=== PATIENT | male | born 1960 | race Caucasian/White ===

== ENCOUNTER 2017-09-16 17:38 | Emergency (ER) | payer OTHER ==
[~2017-09-16] VITALS: Ht 165.1 cm; Wt 77.1 kg
[~2017-09-16 17:38] MED LIST: ALBU90OI INH; AMOCLA875 PO; ARIP10 PO; ASPI81CH PO; AZIT250 PO; Bactrim Ds Tab1 EACH PO; CEPH500 PO; CLON.5 PO; CLON1 PO; HYDACE5 PO; HYDCHL25 PO; IBUP400 PO; MECL12.5 PO; METO50ER PO; NAPR500 PO; RXHYDACE PO; SULTRIDS PO; TRAM50 PO
[2017-09-16 19:00] LABS: Calcium, Ionized (POC) 1.15 mmol/L (1.10-1.46); Chloride (POC) 101 mmol/L (98-108); Creatinine (POC) 1.4 mg/dL (0.8-1.3); Glucose (ISTAT POC) 90 mg/dL (70-99); Hemoglobin (POC) 12.9 g/dL (13.5-17.5); Potassium (POC) 3.3 mmol/L (3.5-5.5); Sodium (POC) 142 mmol/L (135-148); Total CO2 (POC) 31 mmol/L (21-32)
== END 2017-09-16 19:25 | disposition home or self-care (01) ==
LOC: ER 17:38
PROVIDERS: Emergency Medicine
DX: R40.0 Somnolence (principal); F15.10 Other stimulant abuse, uncomplicated; F17.210 Nicotine dependence, cigarettes, uncomplicated; F17.220 Nicotine dependence, chewing tobacco, uncomplicated; Z88.8 Allergy status to other drugs, medicaments and biological substances
CPT/HCPCS: 36415; 80047; 85014; 93005; 93010; 99285

== ENCOUNTER → 2018-06-13 | Outpatient (CLI) | payer MEDICARE, OTHER | LOC: LAB EV 16:00 → LAB SHORT 16:00 | DX: L02.511 Cutaneous abscess of right hand (principal) | CPT/HCPCS: 87070; 87075; 87077; 87147; 87186; 87205 ==

== ENCOUNTER 2024-02-23 11:02 | Emergency (ER) | payer OTHER ==
[~2024-02-23] VITALS: Ht 165.1 cm; Wt 86.2 kg
[2024-02-23 11:18] VITALS: BP 166/84
[2024-02-23] MEDS ORDERED: ACET500 PO (11:38)
[2024-02-23] MEDS ORDERED: IBUP600 PO (11:38)
[2024-02-23] MEDS ORDERED: Acetaminophen 500 MG Tab PO ONE (11:40)
[2024-02-23] MEDS ORDERED: Ketorolac Tromethamine 15mg Vial IM ONE (11:40)
== END 2024-02-23 12:15 | disposition home or self-care (01) ==
LOC: ER 11:02
DX: M25.511 Pain in right shoulder (principal); G89.29 Other chronic pain; I10 Essential (primary) hypertension; F17.210 Nicotine dependence, cigarettes, uncomplicated; F17.220 Nicotine dependence, chewing tobacco, uncomplicated; Z95.1 Presence of aortocoronary bypass graft
CPT/HCPCS: 96372; 99282-25; A9270; J1885

== ENCOUNTER → 2024-11-10 | Outpatient (CLI) | payer MEDICARE, OTHER ==
[~2024-11-10] MED LIST changes: +ACET500 PO; +IBUP600 PO
[2024-11-10 15:25] LABS: Creatinine, Urine Random 34.20 mg/dL (27.00-270.00)
[2024-11-10 15:40] LABS: Microalb/Creat Ratio UR, Rand Unable to Calculate mg/g (0.000-30.000); Microalbumin, Random Urine <5.000 mg/L (0.000-20.000)
== END | disposition home or self-care (01) ==
LOC: LAB 11:11 → LAB SHORT 11:11
PROVIDERS: Student in an Organized Health Care Education/Training Program
DX: N18.2 Chronic kidney disease, stage 2 (mild) (principal)
CPT/HCPCS: 82043; 82570